=== PATIENT | male | born 1950 | race Caucasian/White ===

== ENCOUNTER 2016-11-03 12:36 | Day surgery (SDC) | payer MEDICARE, OTHER ==
[~2016-11-03] VITALS: Ht 170.2 cm; Wt 69.0 kg
[~2016-11-03 12:36] MED LIST: ESOM20CA28 PO; IMI100 PO; SERT50TA PO; TRAM50TA2 PO
[2016-11-03] MEDS ORDERED: Propofol 10,000 mCg/mL 20 mL Inj ONE (12:37)
[2016-11-03] MEDS ORDERED: Lidocaine PF 1% 30 mL Inj ONE (12:37)
[2016-11-03] MEDS ORDERED: fentaNYL-PF 50 mCg/mL 2 mL Inj ONE (12:37)
[2016-11-03 13:10] VITALS: BP 143/84; PULSE 90; RESP 16; O2SAT 96
[2016-11-03] MEDS ORDERED: Lactated Ringer's 1,000 ML IV SCH (13:38)
--- NOTE | 2016-11-03 13:38 | PCM.HPANE ---
Patient Data Date of Service: Nov 03, 2016 Surgeon Admitting Provider: Attending Provider:Don Goode MD Primary Care Physician:Catherine Farley PA-C Other Provider:Guilherme Garza Anesthesia Reason for Visit Chronic Duodenal Ulcer Ht/WT & BMI Height (Feet): 5 Height (Inches): 7 Weight (Kilograms): 69 Body Mass Index 23.00 Allergies Coded Allergies: Penicillins (Verified Allergy, Intermediate, SHORTNESS OF BREATH, 11/03/16) meperidine HCl (Verified Allergy, Mild, shaking, 11/03/16) Past Anesthesia History Anesthesia History: Denies:: Abnormal Airway, Anesthesia Reactions, Difficult Intubation, Fam Anesthesia Reaction, Fam Malignant Hypertherm, Malignant Hyperthermia Diabetes History Hx Diabetes?: No MRSA MRSA: No Medications Reported Medications Esomeprazole Magnesium (Nexium)20 Mg Capsule.dr20 Mg PO DAILY Ref 0 07/16/16 Sertraline HCl (Zoloft)50 Mg Njxzmr40 Mg PO DAILY 30 Days Ref 0 03/05/15 Tramadol 50 Mg Voflwz714 Mg PO Q6H PRN For Pain Ref 0 03/05/15 Sumatriptan (Imitrex)100 Mg Mfokva641 Mg PO prn 03/05/15 History History of ENT Problems?: No HEENT History: Denies:: Abnormal Airway Difficult Intubation Dysphagia Hearing Problem Hx of Heart Problems?: No Cardiovascular History: Denies:: AICD Atrial Fibrillation Chest Pain Congestive Heart Failure Hypertension Pacemaker Valvular Heart Disease Hx of Respiratory Problem?: Yes Respiratory History: Positive for:: Pneumonia Denies:: Asthma COPD Cough Hemoptysis Tuberculosis Hx Neurologic Problems?: Yes Neurological History: Positive for:: Headaches Denies:: CVA Hx of GI Problems?: Yes Gastrointestinal History: Positive for:: Rectal Bleeding Denies:: Cirrhosis Diverticulitis Gastroesphageal Reflux Hiatal Hernia Hx of Problems?: No HX of Peritoneal Dialysis: No Hx Musculoskeletal Problems?: No Musculoskeletal History: Denies:: Joint Replacement Psycho Social History: Positive for:: Hx Depression Denies:: Anxiety Hx Surgeries?: Yes (PYLORIC SPYINCTER, LUMBAR FUSION L4-S1) Hx Any Other Health Problems?: Yes Hx Diabetes: No Hx Alcohol Use: NoHx Substance Use: No Smoking Status: Never Smoker Have You Smoked inLast 12 mo: No Stop/Bang Treated for Sleep Apnea?: No Do You Have a CPAP Machine?: No S-Snoring: Do You Snore Loudly: No T-Tired: feel tired, fatigued: No O-Obsered: Observed not breath: No P-Blood Pressure: treated: No B- Body Mass Index > 35 kg/m2: No A- Age over 50: Yes N- Neck Large Circumference: No G- Gender Male: Yes SUKUMAR Total Score: 2 Risk Assessment Category Category 1A: Patient has history of documented sleep apnea, and HAS NOT received any narcotic, sedative or anesthesia administration during this stay. Category 1B: Patient has history of documented sleep apnea, and HAS received any narcotic , sedative or anesthesia administration during this stay Category 2: Patient has SUSPECTED Obstructive Sleep Apnea, and HAS received any narcotic , sedative or anesthesia administration during this stay. Category 3: Patient has SUSPECTED Obstructive Sleep Apnea and HAS NOT received narcotic, sedative or anesthesia administration during this stay. Category 4: Outpatient in Procedural Areas with known sleep apnea or who screen positive for High Risk via the STOP/BANG questionnaire. Exam Exam Vital Signs Vital Signs Date Time Temp Pulse Resp B/P Pulse Ox O2 Delivery O2 Flow Rate FiO2 11/03/16 13:10 36.7 90 16 143/84 96 Room Air General Appearance: Oriented X3, Cooperative HEENT/AIRWAY: MP 3, Neck Movement (Full), Mouth Opening Lungs: Clear to Auscultation, Normal Air Movement Heart: Regular Rate/Rhythm, Normal S1, Normal S2 Plan Impression Patient chart reviewed, patient interviewed and anesthestic plan with risks, benefits, and alternatives discussed, and informed consent obtained. NPO Status: > 8 hrs ASA Physical Status: ASA2 Mod Systemic Disease Anesthetic Plan: MAC Bene/Risks/Altern/Consents: Yes HP Complete Prior to Induction: Yes Saman Rueda MD Nov 03, 2016 13:38
[2016-11-03] MEDS ORDERED: Ondansetron 2 mg/mL 2 mL Inj IVPUSH PRN (13:40)
[2016-11-03] MEDS ORDERED: MetoCLOpramide 5 mg/mL 2 mL Inj IVPUSH PRN (13:40)
[2016-11-03] MEDS: Lactated Ringer's 1,000 ML IV ONE ×3 (13:47→14:23)
[2016-11-03 14:29] VITALS: BP 114/69; PULSE 72; RESP 16; O2SAT 70
[2016-11-03 14:39] VITALS: BP 134/81; PULSE 66; RESP 14; O2SAT 95
--- NOTE | 2016-11-03 14:39 | PCM.ANEP1 ---
Post Anesthesia Phase 1 PACU Phase 1 Assessment Date of Service: Nov 03, 2016 Vital Signs Vital Signs Date Time Temp Pulse Resp B/P Pulse Ox O2 Delivery O2 Flow Rate FiO2 11/03/16 14:29 36.3 72 16 114/69 70 Room Air 11/03/16 13:10 36.7 90 16 143/84 96 Room Air Anesthetic Administered: MAC Level of Alertness: Awake, talking WALL's with Equal Strength: Yes Pain: No Nausea or Vomiting: No Oxygen Delivery: Room Air Lungs: Normal Air Movement Saman Rueda MD Nov 03, 2016 14:39
--- NOTE | 2016-11-03 14:40 | PCM.ANEP2 ---
Post Anesthesia Evaluation ASA/CMS Post Anesthesia Date of Service: Nov 03, 2016 VS in Patient's Normal Range?: Yes Resp Stable; Airway Patent?: Yes CV Function & Hydration Stable: Yes Mental Status Recovered?: Yes Pain control Satisfactory?: Yes N/V Control Satisfactory?: Yes Saman Rueda MD Nov 03, 2016 14:40
[2016-11-03 14:49] VITALS: BP 145/80; PULSE 74; RESP 16; O2SAT 95
[2016-11-03 14:59] VITALS: BP 149/82; PULSE 77; RESP 16; O2SAT 97
[2016-11-03 15:09] VITALS: BP 168/89; PULSE 87; RESP 16; O2SAT 98
--- NOTE | 2016-11-03 23:38 | ENDO ---
[address] [address] ENDOSCOPY PROCEDURE PATIENT: SAMANTHA UGALDE : 1950 MR#: [id number] ADMIT: 11/03/2016 JOB ID: [id number] DATE OF PROCEDURE: 11/03/2016 PRIMARY PROVIDER: Catherine Farley PA-C. PROCEDURE: Esophagogastroduodenoscopy with balloon dilatation under fluoro. INDICATIONS: A 66-year-old male with gastric outlet obstruction. EQUIPMENT: [id number]. SEDATION: Monitored anesthesia as provided by Dr. Saman Rueda. COMPLICATIONS: None identified. PROCEDURE INFORMATION: After the risks and benefits were explained, written and verbal informed consent was obtained. The patient was brought into the endoscopy suite and placed into the left lateral decubitus position. Sedation was achieved using the above-stated medications with the addition of oxygen via nasal cannula. The scope was introduced into the mouth through the bite block and advanced to the second portion of the duodenum. We performed the dilatation procedure as described below. After our efforts, the stomach was decompressed, the scope removed from the patient, who tolerated the procedure well. FINDINGS: 1. Esophagus: The GE junction was at 41 cm from the incisors. No pathology appreciated throughout. 2. Stomach: This time there was no evidence of any retained food debris in the stomach. Retroflexed views were unremarkable. The pylorus appeared wide open. Just inside there appeared to be again moderate stenosis, but I could get the scope through this without pre-dilating. There was a clear-cut ulceration through the 11-12 o'clock location of this stenotic focus. I did not see, however, any obvious neoplastic effects. 3. Duodenum: Stenosis as above. Beyond the stricture the mucosa appeared normal. INTERVENTION: The CRE wire was not long enough, did not stay downstream for us. We swapped this out for a 450 cm angled 0.035 Jagwire. We were able to have this well downstream and positioned our balloon across the stricture appropriately. There was a small amount of waste on the balloon as we proceeded from 15 to 16.5 to 18 mm, holding it for one minute at each increment. There was some mild bleeding, nothing sustained following the procedure. It appeared to open this up nicely and it was much easier to traverse into the duodenum at that point. ENDOSCOPIC DIAGNOSIS: Successful dilatation of an ulcerated post pyloric stricture. RECOMMENDATIONS: 1. Repeat EGD in four months with Anesthesia and fluoroscopy. 2. Continue PPI. 3. Continue caution with well chewed food. 4. High CBD oil is recommended to basically see if we get any significant anti-inflammatory effects by the next time we proceed with dilatation.
== END 2016-11-03 23:59 | disposition home or self-care (01) ==
LOC: END 12:36
PROVIDERS: ATTEND Internal Medicine Gastroenterology
DX: K31.1 Adult hypertrophic pyloric stenosis (principal); K26.7 Chronic duodenal ulcer without hemorrhage or perforation; K51.90 Ulcerative colitis, unspecified, without complications; M54.5 Low back pain; F32.9 Major depressive disorder, single episode, unspecified
CPT/HCPCS: 43249; 74360; J3010; J7120; Q9967

== ENCOUNTER → 2017-03-23 | Day surgery (SDC) | payer MEDICARE, OTHER ==
[~2017-03-23] VITALS: Ht 170.2 cm; Wt 68.0 kg
[~2017-03-23] MED LIST changes: -ESOM20CA28 PO; +Lactated Ringer's 1,000 ML IV ONE; +MESA4KIT2 RC; +Propofol 10 mg/mL 20 mL Inj ONE; +SERT100T PO; -SERT50TA PO; +fentaNYL-PF 50 mCg/mL 2 mL Inj ONE
--- NOTE | 2017-03-23 07:05 | PCM.HPANE ---
Patient Data Surgeon Admitting Provider: Attending Provider:Don Goode MD Primary Care Physician:Catherine Farley PA-C Other Provider:Guilherme Garza Anesthesia Reason for Visit Pyloric Stenosis Ht/WT & BMI Body Mass Index Allergies Coded Allergies: Penicillins (Verified Allergy, Intermediate, SHORTNESS OF BREATH, 11/03/16) meperidine HCl (Verified Allergy, Mild, shaking, 11/03/16) Past Anesthesia History Anesthesia History: Denies:: Abnormal Airway, Anesthesia Reactions, Difficult Intubation, Fam Anesthesia Reaction, Fam Malignant Hypertherm, Malignant Hyperthermia Diabetes History Hx Diabetes?: No MRSA MRSA: No Medications Reported Medications Tramadol 50 Mg Ngkqfn10 Mg PO Q4H PRN For Pain Ref 0 03/19/17 Sumatriptan (Imitrex)100 Mg Yisksn701 Mg PO 03/19/17 Mesalamine W/Cleansing Wipes (Rowasa 4 gm/60 ml Enema Kit)4 Gm/60 Ml Kit4 Gm RC HS Ref 0 03/19/17 Discontinued Reported Medications Sertraline HCl (Zoloft)100 Mg Xfnedo704 Mg PO DAILY 30 Days Ref 0 03/19/17 Esomeprazole Magnesium (Nexium)20 Mg Capsule.dr20 Mg PO DAILY Ref 0 07/16/16 Sertraline HCl (Zoloft)50 Mg Jbdolo28 Mg PO DAILY 30 Days Ref 0 03/05/15 Tramadol 50 Mg Tndugl994 Mg PO Q6H PRN For Pain Ref 0 03/05/15 Sumatriptan (Imitrex)100 Mg Qniyhj427 Mg PO prn 03/05/15 History History of ENT Problems?: No HEENT History: Denies:: Abnormal Airway Difficult Intubation Dysphagia Hearing Problem Denture Type: None Teeth Condition: Broken Teeth Other HEENT Pertinent History: Molars on left Hx of Heart Problems?: No Cardiovascular History: Denies:: AICD Atrial Fibrillation Chest Pain Congestive Heart Failure Hypertension Pacemaker Valvular Heart Disease Hx of Respiratory Problem?: Yes Respiratory History: Positive for:: Pneumonia Denies:: Asthma COPD Cough Hemoptysis Tuberculosis Hx Neurologic Problems?: Yes Neurological History: Positive for:: Headaches Denies:: CVA Hx of GI Problems?: Yes Hx of Problems?: No HX of Peritoneal Dialysis: No Hx Musculoskeletal Problems?: No Musculoskeletal History: Denies:: Joint Replacement Psycho Social History: Positive for:: Hx Depression Denies:: Anxiety Hx Surgeries?: Yes (PYLORIC SPYINCTER, LUMBAR FUSION L4-S1) Hx Any Other Health Problems?: Yes Hx Diabetes: No Hx Alcohol Use: NoHx Substance Use: No Smoking Status: Never Smoker Have You Smoked inLast 12 mo: No Stop/Bang Risk Assessment Category Category 1A: Patient has history of documented sleep apnea, and HAS NOT received any narcotic, sedative or anesthesia administration during this stay. Category 1B: Patient has history of documented sleep apnea, and HAS received any narcotic , sedative or anesthesia administration during this stay Category 2: Patient has SUSPECTED Obstructive Sleep Apnea, and HAS received any narcotic , sedative or anesthesia administration during this stay. Category 3: Patient has SUSPECTED Obstructive Sleep Apnea and HAS NOT received narcotic, sedative or anesthesia administration during this stay. Category 4: Outpatient in Procedural Areas with known sleep apnea or who screen positive for High Risk via the STOP/BANG questionnaire. Exam Exam General Appearance: Alert HEENT/AIRWAY: MP 1 Lungs: Normal Air Movement Heart: Regular Rate/Rhythm Plan Impression Patient chart reviewed, patient interviewed and anesthestic plan with risks, benefits, and alternatives discussed, and informed consent obtained. ASA Physical Status: ASA2 Mod Systemic Disease Anesthetic Plan: MAC Bene/Risks/Altern/Consents: Yes HP Complete Prior to Induction: Yes Marc Hinds MD Mar 23, 2017 07:04
[2017-03-23 07:32] VITALS: BP 133/83; PULSE 78; RESP 16; O2SAT 97
[2017-03-23 08:46] VITALS: BP 104/74; PULSE 71; RESP 16; O2SAT 92
[2017-03-23 08:58] VITALS: BP 121/71; PULSE 75; RESP 14; O2SAT 96
--- NOTE | 2017-03-23 09:43 | ENDO ---
[address] [address] ENDOSCOPY PROCEDURE PATIENT: SAMANTHA UGALDE : 1950 MR#: [id number] ADMIT: 03/23/2017 JOB ID: [id number] DATE OF PROCEDURE: 03/23/2017 PRIMARY PROVIDER: Catherine Farley PA-C PROCEDURE: Esophagogastroduodenoscopy with balloon dilatation under fluoroscopy and biopsy. INDICATIONS: A 67-year-old male with a history of pyloric stenosis. He did well with an 18 mm dilatation back in October and has not had any vomiting since then. He only recently has started to have an increased sense of some early satiety. Repeat EGD is pursued today to repeat the dilatation effect. EQUIPMENT: GIF-H180J SEDATION: Monitored anesthesia. COMPLICATIONS: None identified. PROCEDURE INFO: After the risks and benefits were explained, written and verbal informed consent was obtained. The patient was brought into the endoscopy suite and placed into the left lateral decubitus position. Sedation was achieved as above. The scope introduced into the mouth through the bite block and advanced under direct visualization through the esophagus, stomach, stenosis, and into the second portion of the duodenum. The scope was slowly withdrawn. Retroflexed views were all ultimately accomplished in the stomach. Dilatation was performed under fluoroscopy as below. The stomach was decompressed. The scope then removed from the patient who tolerated the procedure well. FINDINGS: 1. Esophagus: The GEJ was at about 36 cm from the incisors. No acute erosive changes. No strictures. No mass lesions. No pathology in the esophagus. 2. Duodenum: This appeared visually normal beyond the pylorus. 3. Stomach: There was no residual food debris remaining in the stomach. Retroflexed views of the LES were unremarkable. I was able to navigate through the stenotic, pyloric region without pre-dilating. There was, however, persistent ulceration again seen. This was bland based. Photograph was taken. No obvious neoplastic effects. We left the wire in place from the 15 to 18 mm balloon and sequentially dilated up to 18 mm using all three settings at one minute intervals. At the end of our dilatation effect there was an appropriate amount of bleeding from the dilatation effect. All of this however was self-limited and did not require any endoscopic intervention. I did elect to repeat a biopsy at this location for histopathologic analysis just to exclude any element of neoplasia or intestinal metaplasia, et cetera. ENDOSCOPIC DIAGNOSIS: Ulcerated moderate pyloric stricture status post dilatation and biopsy. RECOMMENDATIONS: 1. Await histopathology. 2. Continue PPI. 3. Continue well-chewed diet. 4. Repeat EGD with anesthesia and fluoroscopy in six months' time as long as histology is entirely reassuring.
--- NOTE | 2017-03-23 17:23 | PCM.ANEP1 ---
Post Anesthesia PACU Phase 1 Assessment Anesthetic Administered: MAC Level of Alertness: Awake, talking Pain: No Nausea or Vomiting: No CV Function & Hydration Stable: Yes Airway Device: None Oxygen Delivery: Room Air Lungs: Normal Air Movement PACU Phase 2 Assessment Complications: No Follow up Care: N/A Patient Instructions Provided: N/A Marc Hinds MD Mar 23, 2017 17:23
--- NOTE | 2017-03-26 16:46 | PATH ---
SURGICAL PATHOLOGY Attending Physician:Neeru Albert CASE STATUS: Signed Out PATIENT NAME: SAMANTHA UGALDE PID: [id number] : 1950 DATE COLLECTED:03/23/2017 18:40 SPECIMEN: Gastric, Biopsy CLINICAL HISTORY: 1). PYLORUS BIOPSY FINAL DIAGNOSIS: 1. DESIGNATED "PYLORUS", BIOPSY:SCANT SUPERFICIAL FRAGMENT OF SMALL BOWEL MUCOSA WITH NO DIAGNOSTIC ABNORMALITY. Intraepithelial lymphocytes are not increased. Negative for dysplasia and malignancy. ICD10 R10.9 GROSS DESCRIPTION: The specimen is received in one formalin filled container labeled with the patient's name, sublabeled "pylorus" and consists of an extremely tiny less than 0.1 CM portion of tissue which is entirely submitted in one cassette. 03/23/2017DC MICRO DESCRIPTION: See diagnosis. ICD-9 CODES: CPT CODES: 1: 79745 Electronically Signed Out Emerald Cosme MD [facility] Pathology [facility] [address], [place] [address] Technical component performed at [facility], [facility] [address], [address]
== END | disposition home or self-care (01) ==
LOC: END 01:35
PROVIDERS: ATTEND Internal Medicine Gastroenterology
DX: K31.1 Adult hypertrophic pyloric stenosis (principal); K25.9 Gastric ulcer, unspecified as acute or chronic, without hemorrhage or perforation; G43.109 Migraine with aura, not intractable, without status migrainosus; K51.90 Ulcerative colitis, unspecified, without complications